=== PATIENT | male | born 1995 | race Caucasian/White ===

== ENCOUNTER 2019-04-25 00:58 | Emergency (ER) | payer MEDICARE, MEDICAID ==
--- NOTE | 2019-04-25 01:31 | ED ---
Psychiatric Complaint - HPI Summary HPI Summary: This pt is a 24 y/o M brought in by police as a 941 to [facility] for suicidal and homicidal ideations and depression. He states that he recently has been stressed by his family. The pt stated that his family doesnt get anything done and they dont want to deal with the truth. Pt denies any fever, chills, erythema of eyes, sore throat, CP, SOB, cough, abdominal pain, N/V, dysuria, hematuria, myalgia, edema, rash, or dizziness. He denied any alleviating factors. He has a Hx of depression and stated that he takes medication but does not remember the name. He stated that he has been taking his medications. - History Of Current Complaint Chief Complaint: EDSuicidal Time Seen by Provider: 04/25/19 01:20 Hx Obtained From: Patient Onset/Duration: Sudden Onset - [employer], Still Present Timing: Constant Severity Initially: Severe Severity Currently: Severe Character: Depressed Aggravating Factor(s): Recent Stress - family argument Alleviating Factor(s): Nothing Associated Signs And Symptoms: Positive: Negative - fever, chills, erythema of eyes, sore throat, CP, SOB, cough, abdominal pain, N/V, dysuria, hematuria, myalgia, edema, rash, or dizziness. Related History: Positive For: Prior Psychiatric Issues - depression Has Suicidal: Reports: Thoughts Has Homicidal: Reports: Thoughts Recent Stressor(s): family - Allergies/Home Medications Allergies/Adverse Reactions: Allergies Allergy/AdvReac Type Severity Reaction Status Date / Time MS Azithromycin Allergy Flushing Verified 07/16/16 10:59 [From Zithromax] MS Penicillins [Penicillins] AdvReac Intermediate Rash Verified 07/16/16 10:59 environmental Allergy Unknown Uncoded 07/16/16 10:59 Reaction Details PMH/Surg Hx/FS Hx/Imm Hx Previously Healthy: Yes Endocrine/Hematology History: Denies: Hx Diabetes Cardiovascular History: Reports: Hx Hypertension - NOT ON MEDS YET, Other Cardiovascular Problems/Disorders - PT'S MOTHER STATES HE BECOMES DEHYDRATED EASILY AND WAS IN HOSP WITH SEPSIS Denies: Hx Pacemaker/ICD Respiratory History: Reports: Hx Sleep Apnea, Other Respiratory Problems/ Disorders - bronchitis GI History: Reports: Hx Gastroesophageal Reflux Disease - ON MEDS, Hx Irritable Bowel - DIARRHEA AND CONSTIPATION, Other GI Disorders - 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 History: Reports: Other Problems/Disorders - EPISODES OF BLOOD IN URINE Denies: Hx Renal Disease Musculoskeletal History: Reports: Other Musculoskeletal History - patella surgery, pops out of socket Sensory History: Reports: Hx Contacts or Glasses - READING GLASSES Denies: Hx Hearing Aid Opthamlomology History: Reports: Hx Contacts or Glasses - READING GLASSES Neurological History: Reports: Other Neuro Impairments/Disorders - BIPOLAR, ASPERGER'S SYNDROME Psychiatric History: Reports: Hx Anxiety, Hx Attention Deficit Hyperactivity Disorder, Hx Depression, Hx Inpatient Treatment, Hx Bipolar Disorder Denies: Hx Panic Disorder - Surgical History Surgery Procedure, Year, and Place: BILATERAL KNEE SURGERY (P[facility]A) X2, TESTICAL TORSION , HAD ONE TESTICAL REMOVED Hx Anesthesia Reactions: No - Immunization History Immunizations Up to Date: Yes Infectious Disease History: No Infectious Disease History: Denies: Traveled Outside the [place] in Last 30 Days - Family History Known Family History: Positive: Other - "bad knees" - Social History Occupation: Unemployed Lives: With Family Alcohol Use: Rare Hx Substance Use: No Substance Use Type: Reports: None Hx Tobacco Use: No Smoking Status (MU): Never Smoked Tobacco Household Exposure: Yes Review of Systems Negative: Fever, Chills Negative: Erythema Negative: Sore Throat Negative: Chest Pain Negative: Shortness Of Breath, Cough Negative: Abdominal Pain, Vomiting, Nausea Negative: dysuria, hematuria Negative: Myalgia, Edema Negative: Rash Neurological: Negative - dizziness Positive: Depressed, Other - POSITIVE: HI and SI All Other Systems Reviewed And Are Negative: Yes Physical Exam - Summary Physical Exam Summary: VITAL SIGNS: Reviewed. GENERAL: Patient is a well-developed and nourished male who is lying comfortable in the stretcher. Patient is not in any acute respiratory distress. HEAD AND FACE: No signs of trauma. No ecchymosis, hematomas or skull depressions. No sinus tenderness. EYES: PERRLA, EOMI x 2, No injected conjunctiva, no nystagmus. EARS: Hearing grossly intact. Ear canals and tympanic membranes are within normal limits. MOUTH: Oropharynx within normal limits. NECK: Supple, trachea is midline, no adenopathy, no JVD, no carotid bruit, no c- spine tenderness, neck with full ROM CHEST: Symmetric, no tenderness at palpation LUNGS: Clear to auscultation bilaterally. No wheezing or crackles. CVS: Regular rate and rhythm, S1 and S2 present, no murmurs or gallops appreciated. ABDOMEN: Soft, non-tender. No signs of distention. No rebound no guarding, and no masses palpated. Bowel sounds are normal. EXTREMITIES: FROM in all major joints, no edema, no cyanosis or clubbing. NEURO: Alert and oriented x 3. No acute neurological deficits. Speech is normal and follows commands. SKIN: Dry and warm PSYCH: Sad, somewhat tearful Triage Information Reviewed: Yes Vital Signs On Initial Exam: Initial Vitals Temp Pulse Resp BP Pulse Ox 97.8 F 116 18 121/100 97 04/25/19 01:04 04/25/19 01:04 04/25/19 01:04 04/25/19 01:04 04/25/19 01:04 Vital Signs Reviewed: Yes Diagnostics - Vital Signs Vital Signs Temp Pulse Resp BP Pulse Ox 04/25/19 01:04 97.8 F 116 18 121/100 97 - Laboratory Result Diagrams: 04/25/19 01:42 04/25/19 01:42 Lab Statement: Any lab studies that have been ordered have been reviewed, and results considered in the medical decision making process. Course/Dx - Course Course Of Treatment: This pt is a 24 y/o M brought in by police as a 941 to [facility] for suicidal and homicidal ideations. He states that he recently has been stressed by his family. The pt stated that his family doesnt get anything done and they dont want to deal with the truth.. His PE found that he is sad and somewhat tearful. Pt was medically cleared fr a [facility] after his lab results showed no abnormal findings. Dr. Bro, psychiatrist, admitted the pt to [facility] psych diaz at 0520 with a Dx of mood disorder NOS voluntarily. The pt stated that he would like to go home and discuss with his family to "set things straight." Dr. Bro is agreeable and stated that the pt is mentally stable enough to be discharged home at 0637. The pt will be discharged home instead of being admitted with a Dx of mood disorder NOS. 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, unspecified - Physician Notifications Discussed Care Of Patient With: Maddi Bro Time Discussed With Above Provider: 05:20 Instructed by Provider To: Admit As Inpatient Discharge - Sign-Out/Discharge Documenting (check all that apply): Patient Departure - discharge Patient Received Moderate/Deep Sedation with Procedure: No - Discharge Plan Condition: Stable Disposition: HOME Referrals: April Matson MD [Primary Care Provider] - - Attestation Statements Document Initiated by Scribe: Yes Documenting Scribe: Kulwinder Velasquez Provider For Whom Scribe is Documenting (Include Credential): Andre Cannon MD Scribe Attestation: Kulwinder Kelley, scribed for Andre Cannon MD on 04/25/19 at 0636. Status of Scribe Document: Ready
[2019-04-25 01:51] LABS: ABS Basophils 0.1 10^3/ul (0-0.2); ABS Eosinophils 0.2 10^3/ul (0-0.6); ABS Lymphocytes 3.5 10^3/ul (1.0-4.8); ABS Monocytes 0.9 10^3/ul (0-0.8); ABS Neutrophils 8.4 10^3/ul (1.5-7.7); Eosinophil % 1.5 %; Hematocrit 41 % (42-52); Hemoglobin 13.5 g/dL (14.0-18.0); Lymphocyte % 26.4 %; Mean Corpuscular HGB Conc 33 g/dL (31-36); Mean Corpuscular Hemoglobin 27 pg (27-31); Mean Corpuscular Volume 81 fL (80-94); Nucleated Red Blood Cells % 0.1; Platelet Count 278 10^3/uL (150-450); Red Blood Count 5.01 10^6 /uL (4.18-5.48); Red Cell Distribution Width 15 % (10-15); White Blood Count 13.2 10^3/uL (3.5-10.8)
[2019-04-25 02:06] LABS: ALT 40 U/L (7-52); AST 31 U/L (13-39); Albumin 3.7 g/dL (3.2-5.2); Albumin/Globulin Ratio 0.8 (1-3); Alkaline Phosphatase 80 U/L (34-104); Anion Gap 9 mmol/L (2-11); BUN/Creatinine Ratio 12.7 (8-20); Blood Urea Nitrogen 15 mg/dL (6-24); CO2 Carbon Dioxide 24 mmol/L (22-32); Calcium 9.6 mg/dL (8.6-10.3); Chloride 103 mmol/L (101-111); EGFR African American 90.3 (>60); EGFR Non-African American 74.6 (>60); Globulin 4.6 g/dL (2-4); Glucose 115 mg/dL (70-100); Sodium 136 mmol/L (135-145); Total Protein 8.3 g/dL (6.4-8.9)
[2019-04-25 02:14] LABS: Acetaminophen < 15 mcg/mL; Alcohol < 10 mg/dL (<10); Salicylate < 2.50 mg/dL (<30)
[2019-04-25 02:30] LABS: TSH (Thyroid Stimulating Horm) 1.47 mcIU/mL (0.34-5.60)
[2019-04-25 04:13] LABS: Urine Appearance Cloudy; Urine Bacteria Absent (Absent); Urine Bilirubin Negative (Negative); Urine Blood Negative (Negative); Urine Color Yellow; Urine Glucose Negative (Negative); Urine Ketones Negative (Negative); Urine Nitrite Negative (Negative); Urine Protein 1+(30 mg/dL) (Negative); Urine Red Blood Cell Absent (Absent); Urine Specific Gravity 1.023 (1.010-1.030); Urine Squamous Epithelial Cell Present (Absent); Urine Urobilinogen Negative (Negative); Urine White Blood Cell Absent (Absent)
[2019-04-25 04:16] LABS: Urine Benzodiazepine Screen None Detected (None Detect); Urine Opiates Screen None Detected (None Detect)
[2019-04-25 06:56] VITALS: BP 129/106
== END 2019-04-25 06:54 | disposition home or self-care (01) ==
LOC: ED 00:58
DX: F31.9 Bipolar disorder, unspecified (principal); F06.30 Mood disorder due to known physiological condition, unspecified; R45.851 Suicidal ideations; R45.850 Homicidal ideations; I10 Essential (primary) hypertension; K21.9 Gastro-esophageal reflux disease without esophagitis; Z88.1 Allergy status to other antibiotic agents
CPT/HCPCS: 36415; 80053; 80164; 80307; 80320; 80329; 81003; 81015; 84443; 85025; 99283; G0480